=== PATIENT | male | born 1965 | race Caucasian/White ===

== ENCOUNTER 2025-01-21 05:47 | Emergency (ER) | payer OTHER ==
[~2025-01-21] VITALS: Ht 182.8 cm; Wt 136.1 kg
== END 2025-01-21 08:46 | disposition home or self-care (01) ==
LOC: ED 05:47
DX: S83.91XA Sprain of unspecified site of right knee, initial encounter (principal); Z88.0 Allergy status to penicillin; X58.XXXA Exposure to other specified factors, initial encounter; Y93.89 Activity, other specified; Y92.89 Other specified places as the place of occurrence of the external cause; Y99.8 Other external cause status